=== PATIENT | male | born 1990 | race Two or more races ===

== ENCOUNTER 2023-06-15 11:12 | Emergency (ER) | payer MEDICAID, OTHER ==
[~2023-06-15] VITALS: Ht 165.1 cm; Wt 63.6 kg
[2023-06-15 11:45] VITALS: PULSE 65; RESP 20; O2SAT 20
[2023-06-15 12:33] LABS: Basophils # (auto) 0.1 10 ^3/uL (0-0.2); Basophils % (auto) 0.4 % (0.0-2.0); Eosinophils # (auto) 0 10 ^3/uL (0-0.8); Eosinophils % (auto) 0.2 % (0.0-7.0); Hematocrit 41.9 % (41.0-53.0); Hemoglobin 14.2 g/dL (13.5-17.5); Lymphocytes % (auto) 6.6 % (10.0-50.0); Mean Corpuscular Hemoglobin 31.7 pg (28.0-32.0); Mean Corpuscular Hgb Conc. 33.9 g/dL (32.0-36.0); Mean Corpuscular Volume 93.5 fL (80.0-100.0); Monocytes # (auto) 0.5 10 ^3/uL (0-1.3); Monocytes % (auto) 3.2 % (0.0-12.0); Neutrophils # (auto) 13.1 10 ^3/uL (1.6-8.6); Neutrophils % (auto) 89.6 % (37.0-80.0); Red Blood Cells 4.48 10^6/uL (4.5-5.90); Red Cell Distribution Width 13.4 % (11.8-14.3); White Blood Cell 14.6 10^3/uL (4.4-10.8)
[2023-06-15 12:46] LABS: INR 1.04 (0.9-1.15); Prothrombin Time 10.9 sec (9.3-11.8)
[2023-06-15] MEDS: MORPHINE SULFATE 4 MG/ML SYR/VIAL IV ONE (13:15)
[2023-06-15] MEDS: TETANUS-DIPTH-ACEL PERTUSSIS 0.5ML SYR Tdap IM ONE (15:33)
[2023-06-15 16:21] VITALS: BP 118/73; PULSE 67; RESP 16; TEMP 98.2; O2SAT 95
== END 2023-06-15 16:45 | disposition short-term general hospital (02) ==
LOC: EDBD 11:12 → ER 11:12
DX: S06.0X0A Concussion without loss of consciousness, initial encounter (principal); S00.83XA Contusion of other part of head, initial encounter; S20.20XA Contusion of thorax, unspecified, initial encounter; S30.0XXA Contusion of lower back and pelvis, initial encounter; V80.010A Animal-rider injured by fall from or being thrown from horse in noncollision accident, initial encounter; Y93.89 Activity, other specified; Y92.89 Other specified places as the place of occurrence of the external cause; Y99.8 Other external cause status
CPT/HCPCS: 36415; 70450; 70486; 71250; 72125; 72128; 72131; 84484; 85025; 85610; 90471; 90715; 93005; 96374; 99291; J2270